=== PATIENT | male | born 1955 | race Caucasian/White ===

== ENCOUNTER 2019-01-27 06:58 | Day surgery (SDC) | payer OTHER ==
[2019-01-25 17:52] VITALS: BMI 27.7
--- NOTE | 2019-01-27 08:27 | HP ---
Satellite H - Chief Complaint Chief Complaint: right shoulder pain - Past Medical History Allergies/Adverse Reactions: Allergies Allergy/AdvReac Type Severity Reaction Status Date / Time No Known Drug Allergies Allergy Verified 01/27/19 07:23 - Current Medications Current Medications: Home Medications Medication Instructions Recorded Aspirin Coated [Ecotrin -] 81 mg PO UTDICT 01/25/19 Fenofibrate 150 mg PO DAILY 01/25/19 Lisinopril 5 mg PO HS 01/25/19 Metoprolol Succinate 50 mg PO HS 01/25/19 Oxycodone HCl/Acetaminophen 1 - 2 tab PO Q6H #30 tab MDD 6 01/27/19 [Percocet 5-325 mg Tablet] Satellite Physical Exam - Physical Examination Vital Signs: Vital Signs Period Temp Pulse Resp BP Sys/Lundberg Pulse Ox Last 24 Hr 97.6 F 55 16 126/76 99 General Appearance: Well Nourished, Well Developed, Alert & Oriented x3 ENT: Clear Lung: Normal air movement Heart: Regular rate & rhythm Extremities: Other (right shoulder - + ttp, decr rom, + neer, + kaplan, + empty can, nvi, MRI + rct) Neurological: Intact, Alert, Oriented Satellite Impression/Plan - Impression/Plan Impression: right shoulder rct Operative Procedure: right shoulder arthroscopy with RUIZ BARRIENTOS Date to be Performed: 01/27/19
[2019-01-27] MEDS ORDERED: PROPOFOL 20 ML ONE (08:39)
[2019-01-27] MEDS ORDERED: ROPIVACAINE HCL 0.5% 30ML VIAL ONE (08:47)
[2019-01-27] MEDS ORDERED: MIDAZOLAM HCL 2 MG/2 ML SINGLE DOSE VIAL ONE ×2 (08:48)
[2019-01-27] MEDS ORDERED: LIDOCAINE HCL/PF 2% SDV 5ML VIAL ONE (09:10)
[2019-01-27] MEDS ORDERED: DEXAMETHASONE SOD PHOSPHATE 4 MG/1 ML VIAL ONE (09:10)
[2019-01-27] MEDS ORDERED: HEPARIN NA (PORCINE) 5,000 UNITS/ML 1ML VIAL ONE (09:10)
[2019-01-27] MEDS ORDERED: ceFAZolin SODIUM 1 GM VIAL IVPB ONE (09:25)
[2019-01-27] MEDS ORDERED: ceFAZolin SODIUM 1 GM VIAL ONE (09:26)
[2019-01-27] MEDS ORDERED: oxyCODONE HCL 5 MG TABLET PO PRN (09:37)
[2019-01-27] MEDS ORDERED: ONDANSETRON 4 MG/2 ML VIAL IVPUSH PRN (09:37)
[2019-01-27] MEDS ORDERED: LACTATED RINGERS SOLUTION 1,000 ML IV SCH (09:45)
[2019-01-27] MEDS ORDERED: LABETALOL HCL 5 MG/1 ML (100MG/20 ML VIAL) ONE (09:46)
[2019-01-27] MEDS ORDERED: CEFAZOLIN 1 GM/D5W 1 GM/50 ML BAG IVPB ONE (10:33)
--- NOTE | 2019-01-27 10:35 | OP ---
Operative Note - Note: Operative Date: 01/27/19 ([facility]) Pre-Operative Diagnosis: right shoulder rct Operation: right shoulder arthroscopy with RCR, SAD Implants: arthrex speedbridge Post-Operative Diagnosis: Same as Pre-op Surgeon: Dagoberto Hernández Vibrating Screed Operator: Jv Andres Anesthesiologist/RELIEF MAP MODELER: Lucrecia Olguin Anesthesia: General, Local Specimens Removed: shavings Estimated Blood Loss (mls): 5 Operative Report Dictated: Yes
[2019-01-27 12:09] VITALS: TEMP 97.8
--- NOTE | 2019-01-27 12:16 | SPEC ---
DATE OF OPERATION: 01/27/2019 PREOPERATIVE DIAGNOSIS: Right rotator cuff tear. POSTOPERATIVE DIAGNOSIS: Right rotator cuff tear. PROCEDURE: Right shoulder arthroscopy, subacromial decompression, and SpeedBridge rotator cuff repair. SURGICAL ATTENDING: Tadeo Gage MD SAW MAKER: GORDON Gordon SECOND FLIGHT ATTENDANT: Dagoberto Hernández MD ANESTHESIA: Regional and general. CLOSURE: An Arthrex SpeedBridge for rotator cuff and 3-0 nylon for skin. ESTIMATED BLOOD LOSS: Negligible. COMPLICATIONS: None. CONDITION: To the recovery room in stable condition. DESCRIPTION OF PROCEDURE: The patient was taken to the operating room on January 27, 2019. General and regional anesthesia was administered by the anesthesiologist. IV Kefzol was administered prophylactically prior to the case. The patient was placed in the beach chair position with all prominences well padded. The right shoulder area was prepped and draped in the usual sterile fashion. First, a diagnostic arthroscopy of the glenohumeral joint was made. Posterior portal was made 2 fingerbreadths below the acromion with a 15 blade followed by a blunt trocar. Circumferential exam of the glenohumeral joint revealed the following: Intact labrum circumferentially, intact glenoid and humeral head articular cartilage, intact biceps and biceps anchor, intact subscapularis through its insertion. Looking superiorly, there was a large rotator cuff tear. The fluid was drained from the shoulder, and the trocar was removed. The posterior trocar was redirected in the subacromial space. An accessory lateral and anterior portal were made with a 15 blade followed by a blunt trocar. The lateral portal was used as the working portal. Through this portal, an ArthroCare device was applied. This was used to debride the soft tissue in the subacromial aspect. The coracoacromial ligament was identified and detached off the anterior acromion and was visualized to drop inferiorly and was further debrided. The bone on the undersurface of the acromion was burred to the appropriate level giving appropriate height for the rotator cuff beneath. Looking inferiorly, there was a large rotator cuff tear, soft tissue encasing the rotator cuff, and the deltoid recess was debrided using ArthroCare device and the shaver. The bed on the greater tuberosity was burred to give a good bed for the double row SpeedBridge repair. A grasper was used to ensure that the rotator cuff was able to be reduced sufficiently to the greater tuberosity. The rotator cuff was freed on the bursal and the articular surface to allow more excursion of the tendon. Two anchors preloaded with FiberTape suture were placed on the articular margin, one more anteriorly, one more posteriorly. They were shuttled through the anterior portal with a grasper. Each limb was individually passed through the rotator cuff, two anteriorly and two posteriorly. One anterior limb and one posterior limb was delivered through the lateral portal. They were placed through the eyelet hole of the more lateral anchor, which was then malleted into place much more laterally, reducing the rotator cuff to the greater tuberosity. The swivel was then screwed into place. The sutures were then cut flush with the bone. Next, one anterior and one posterior limb that was remaining were shuttled from the anterior to the lateral portal. The sutures were placed through the eyelet hole of the anterior anchor, which was malleted on the anterior aspect of the greater tuberosity. After tensioning it, it was deployed the entire way and then screwed home giving an excellent reduction to the anterior portion of the rotator cuff. After the sutures were cut, the rotator cuff was probed and found to have good stability with excellent matting down of the rotator cuff to the greater tuberosity. The shoulder was taken through the range of motion and found to have good clearance on the undersurface of the acromion with good, solid repair. The shoulder was drained of the fluid. The portals were closed with 3-0 nylon suture. A sterile pressure dressing followed by a shoulder immobilizer was applied. The patient was awoken from anesthesia and transferred to recovery room in stable condition. No complications. Estimated blood loss negligible. Sadia SANTORO/[id number]
[2019-01-27] MEDS ORDERED: CEFAZOLIN 1 GM/D5W 1 GM/50 ML BAG ONE (12:18)
[2019-01-27 14:46] VITALS: BP 108/74; PULSE 74
--- NOTE | 2019-01-31 13:08 | PATH ---
Surgical Pathology Report Patient Name: CASSIA UMAÑA Med. Rec. #: [id number] /Age/Gender: 1955 (Age: 63) / M Account: [id number] Location: [facility] SURGICAL Taken: 01/27/2019 Received: 01/27/2019 Reported: 01/30/2019 Physicians: Tadeo Gage M.D. Specimen(s) Received RIGHT SHOULDER SHAVINGS Clinical History Right shoulder impingement syndrome, rotator cuff repair Final Diagnosis SHOULDER SHAVINGS, RIGHT, ARTHROSCOPY AND ROTATOR CUFF REPAIR: FRAGMENTS OF BENIGN CARTILAGE, DENSE FIBROCONNECTIVE TISSUE, ADIPOSE TISSUE, BONE, AND SKELETAL MUSCLE. Electronically Signed Keyona Oneil M.D. Gross Description Received in formalin, labeled "right shoulder shavings," is a 4 x 4 x 1 cm. aggregate of phelps-yellow soft tissue fragments. A healthcare sales representative portion is submitted in one cassette. MLSZ/01/27/2019 sannell/01/27/2019
== END 2019-01-27 13:00 | disposition home or self-care (01) ==
LOC: JASU-SURG 06:58
PROVIDERS: ATTEND Orthopaedic Surgery
PROC: 0RNJ4ZZ Release Right Shoulder Joint, Percutaneous Endoscopic Approach (ICD-10-PCS; principal; 2019-01-27 09:00)
PROC: 0LQ14ZZ Repair Right Shoulder Tendon, Percutaneous Endoscopic Approach (ICD-10-PCS; 2019-01-27 09:00)
DX: M75.101 Unspecified rotator cuff tear or rupture of right shoulder, not specified as traumatic (principal)
CPT/HCPCS: 88304-TC; 94760; J1644

== ENCOUNTER 2019-02-17 09:28 | Day surgery (SDC) | payer OTHER ==
[2019-02-16 11:27] VITALS: BMI 28.5
[2019-02-17 11:26] LABS: BASO % 0.6 % (0-2.0); EOS % 2.7 % (0-4.5); HEMATOCRIT 42.6 % (35.4-49); HEMOGLOBIN 13.9 GM/dL (11.7-16.9); MCH 28.8 pg (25.7-33.7); MCHC 32.6 g/dl (32.0-35.9); MEAN CELL VOLUME 88.4 fl (80-96); MEAN PLT VOLUME 9.2 fl (7.5-11.1); MONO % 14.2 % (3.8-10.2); NEUT % 66.5 % (42.8-82.8); PLATELET COUNT 267 K/MM3 (134-434); RBC 4.81 M/mm3 (4.00-5.60); RDW 14.1 % (11.9-15.9); WHITE BLOOD COUNT 5.4 K/mm3 (4.0-10.0)
[2019-02-17 11:39] LABS: PROTHROMBIN TIME (PATIENT) 11.8 SEC (9.7-13.0)
[2019-02-17 14:31] VITALS: BP 136/79; PULSE 80; TEMP 98.1
--- NOTE | 2019-02-27 11:20 | PATH ---
Surgical Pathology Report Patient Name: CASSAI UMAÑA [facility]. Rec. #: [id number] /Age/Gender: 1955 (Age: 63) / M Account: [id number] Location: RADIOLOGY INTER Taken: 02/17/2019 Received: 02/17/2019 Reported: 02/27/2019 Physicians: Armando Espinal M.D. Valente Prince Lynchu Specimen(s) Received LEFT LYMPH NODE LEFT GROIN Clinical History 63-year-old male with bilateral inguinal adenopathy Final Diagnosis LYMPH NODE, GROIN, LEFT, CORE BIOPSY: MANTLE CELL LYMPHOMA. SEE COMMENT. Comment: Needle biopsy sections show a diffuse proliferation of small monotonous atypical lymphoid cells. They have round to cleaved nuclear contour. Immunohistochemical studies show the tumor cells to be positive for CD20, PAX-5, CD5, cyclin D1, BCL-2, and IgD in a subset. They are negative for CD10, CD30, BCL-6, MUM-1, CD43, and P53. CD3 highlights admixed T-cells. CD23 highlights disrupted USP meshworks. The proliferative rate is low (1+ out of 4+) by Ki-67 staining. The findings correlate with the flow cytometric analysis and FISH findings. This case was sent to Dr. Deshaun Woodson from [place], [place] ([id number]) the diagnosis above reflects his opinion. FLOW CYTOMETRIC ANALYSIS performed and interpreted at [facility] [place] shows the following: CD5 (+) B-CELL LYMPHOMA. PHENOTYPE: Based on light scatter characteristics and 7AAD negativity approximately 85% of the total cells in the specimen are viable. Of the viable cells approximately 18% are T-cells and 79% B-cells. Virtually all of the B-cells are monoclonal and express CD19, CD20, CD22 (dim), CD5 (dim), CD38, and surface kappa light chain. They are negative for CD10, CD11c, CD23, and surface lambda light chain. The T-cells express all alegria-T-cell antigens tested with CD4 > CD8 (ratio = 5.4:1). Approximately 1% of the cells express CD13/CD33, consistent with myeloid/monocytic cells. There is no significant BC45-iepbyjoz population. FLUORESCENCE IN-SITU HYBRIDIZATION performed and interpreted at [place], [place] shows the following: INTERPRETATION: CLL panel: 1. Positive for a t(11;14)/CCND1-IGH rearrangement (40.5% of cells). The following hybridization pattern was observed in 19.0% of these cells: 3qTZDS3, 1xIGH, 7dJBQG8/IGH fusion signal, versus the expected abnormal pattern of 4pEBZZ9, 1xIGH, 3gJISZ6/IGH fusion signal found in the remaining cells. The t(11;14)(q13;q32) translocation is characteristic of mantle cell lymphoma (MCL). It is also found in multiple myeloma (MM). Clinical correlation is indicated. 2. 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 The 11q deletion is a secondary aberration to t(11;14) translocation in MCL. 3. Negative for trisomy 12. 4. Negative for a deletion of DLEU1, DLEU2 on the long arm of chromosome 13 at q14 and monosomy 13. 5. Negative for a deletion of TP53 on the short arm of chromosome 17 at p13. See [facility] reports (Specimen #: [id number] and Specimen #: [id number]) for additional details. Findings relayed to Venkat from Dr. Willis office, 02/27/19. Electronically Signed Keyona Oneil M.D. Gross Description Received in formalin labeled "lymph node biopsy left groin," are 4 phelps, cylindrical portions of soft tissue ranging from 0.5-1.3 cm in length and averaging 0.1 cm in diameter. The specimens are submitted in toto in one cassette. There is additional tissue received in RPMI solution which is sent for flow cytometry. 02/17/2019 [facility]2019
== END 2019-02-17 14:40 | disposition home or self-care (01) ==
LOC: JRADIR 09:28
PROVIDERS: ATTEND Surgery
PROC: 07BJ3ZX Excision of Left Inguinal Lymphatic, Percutaneous Approach, Diagnostic (ICD-10-PCS; principal; 2019-02-17)
DX: R59.0 Localized enlarged lymph nodes (principal)
CPT/HCPCS: 36415; 38505; 76942-TC; 85025; 85610; 87899; 88307-TC